=== PATIENT | male | born 1955 | race Caucasian/White ===

== ENCOUNTER → 2024-02-05 08:11 | Outpatient (REF) | payer BC, SELFPAY | LOC: HWRAD 08:11 | PROVIDERS: ATTENDING PHYSICIAN Internal Medicine Critical Care Medicine; FAMILY PHYSICIAN Physician Assistant Medical | DX: Z77.090 Contact with and (suspected) exposure to asbestos (principal); R06.02 Shortness of breath; Z87.891 Personal history of nicotine dependence | CPT/HCPCS: 71250 ==

== ENCOUNTER → 2024-02-20 09:05 | Outpatient (REF) | payer BC, SELFPAY | LOC: HWRAD 09:05 | PROVIDERS: ATTENDING PHYSICIAN Physician Assistant Medical | DX: E78.2 Mixed hyperlipidemia (principal); R74.01 Elevation of levels of liver transaminase levels | CPT/HCPCS: 76700 ==

== ENCOUNTER → 2024-06-24 06:24 | Day surgery (SDC) | payer BC, SELFPAY | LOC: GI 06:24 | PROVIDERS: ATTENDING PHYSICIAN Internal Medicine Gastroenterology | DX: Z86.010 Personal history of colon polyps (principal); K64.0 First degree hemorrhoids; K63.5 Polyp of colon; R07.9 Chest pain, unspecified; R19.7 Diarrhea, unspecified; Z12.11 Encounter for screening for malignant neoplasm of colon; K22.89 Other specified disease of esophagus; K31.89 Other diseases of stomach and duodenum; L83 Acanthosis nigricans; K29.70 Gastritis, unspecified, without bleeding | CPT/HCPCS: 45380; 43239; 88305; 88342 ==

== ENCOUNTER → 2025-02-03 07:21 | Outpatient (REF) | payer BC, SELFPAY | LOC: RAD 07:21 | PROVIDERS: ATTENDING PHYSICIAN Internal Medicine Gastroenterology; FAMILY PHYSICIAN Physician Assistant Medical | DX: R10.12 Left upper quadrant pain (principal); K74.60 Unspecified cirrhosis of liver | CPT/HCPCS: 76700; 78264; A9541 ==

== ENCOUNTER → 2025-02-21 07:06 | Outpatient (REF) | payer BC, SELFPAY | LOC: RAD 07:06 | PROVIDERS: ATTENDING PHYSICIAN Physician Assistant Medical | DX: I71.43 Infrarenal abdominal aortic aneurysm, without rupture (principal) | CPT/HCPCS: 76770 ==

== ENCOUNTER → 2025-10-03 14:58 | Outpatient (REF) | payer MEDICARE, OTHER, SELFPAY | LOC: MRI 3T 14:58 | PROVIDERS: ATTENDING PHYSICIAN Internal Medicine Gastroenterology; FAMILY PHYSICIAN Pediatrics Pediatric Allergy/Immunology | DX: K74.60 Unspecified cirrhosis of liver (principal) | CPT/HCPCS: 74183; A9581 ==